=== PATIENT | male | born 1980 ===

== ENCOUNTER 2017-03-19 21:55 | Emergency (ER) | payer SELFPAY ==
[~2017-03-19] VITALS: Ht 175.3 cm; Wt 79.0 kg
[2017-03-19 22:04] VITALS: Ht 175.3 cm; Wt 79.0 kg
[2017-03-19] MEDS ORDERED: AMOX1TAB10 PO (22:43)
--- NOTE | 2017-03-19 22:45 | ERD ---
ER Documentation Chief Complaint Date/Time DATE: 03/19/17 TIME: 22:44 Chief Complaint dog bite yesterday on right villalobos, no bleeding noted HPI This 29-year-old male presents with a dog bite on her right villalobos sustained 2 days ago. He was delivering mail. His tetanus is not up-to-date. He has no bleeding or redness or discharge. He is able to ambulate without pain. ROS All systems reviewed and are negative except as per history of present illness. Medications Home Meds Active Scripts Amoxicillin/Potassium Clav (Amox-Clav 875-125 mg Tablet) 875-125 mg Tab, 1 TAB PO BID for 7 Days, #14 TAB Prov:JUSTYN AMEZCUA MD 03/19/17 PMhx/Soc Medical and Surgical Hx: pt denies Medical Hx, pt denies Surgical Hx Hx Alcohol Use: No Hx Substance Use: No Hx Tobacco Use: No Physical Exam Vitals Vital Signs Date Time Temp Pulse Resp B/P Pulse Ox O2 Delivery O2 Flow Rate FiO2 03/19/17 22:04 98.2 61 20 134/80 100 Physical Exam Const: [], [id number] Head: Atraumatic Eyes: Normal Conjunctiva ENT: Normal External Ears, Nose and Mouth. Neck: Full range of motion..~ No meningismus. Resp: Clear to auscultation bilaterally Cardio: Regular rate and rhythm, no murmurs Abd: Soft, non tender, non distended. Normal bowel sounds Skin: No petechiae or rashes. There are 3-4 superficial abrasions without active bleeding on the right villalobos. There is no surrounding erythema, discharge there is no calf swelling or Homans sign. Back: No midline or flank tenderness Ext: No cyanosis, or edema Neur: Awake and alert Psych: Normal Mood and Affect Results 24 hrs Current Medications Medications (Trade) Dose Ordered Sig/Gabrilele Route PRN Reason Start Time Stop Time Status Last Admin Dose Admin Diphtheria/ Tetanus/Acell Pertussis (Adacel) 0.5 ml ONCE ONCE IM* 03/19/17 23:00 03/19/17 23:01 Procedures/MDM Patient was given a tetanus booster. Patient presents with a dog bite on the right villalobos without evidence of infection or lacerations. He will treated with Augmentin and instructions for wound care. He should return for worsening redness, fevers, new worsening symptoms with primary care doctor this week. There is no additional signs or symptoms of complications such as DVT, fracture , dislocation, foreign body, ischemia or deficits. Departure Diagnosis: Primary Impression: Bite wound Condition: Stable Patient Instructions: Animal Bite, General Additional Instructions: Recheck for redness, fevers, new worsening symptoms JUSTYN AMEZCUA MD Mar 19, 2017 22:45
[2017-03-19] MEDS ORDERED: DIPHTH/TET/ACEL PERTUSS (ADULT) 0.5 ML VIAL IM* ONE (23:00)
== END 2017-03-20 00:08 | disposition home or self-care (01) ==
LOC: FTE 21:55
DX: S81.851A Open bite, right lower leg, initial encounter (principal); W54.0XXA Bitten by dog, initial encounter; Y92.9 Unspecified place or not applicable; Z23 Encounter for immunization
CPT/HCPCS: 90471; 90715